=== PATIENT | male | born 1980 | race Asian ===

== ENCOUNTER 2018-01-03 20:19 | Observation (INO) | payer OTHER ==
[~2018-01-03] VITALS: Ht 182.9 cm; Wt 72.9 kg
[2018-01-03] MEDS ORDERED: SODIUM CHLORIDE 0.9% 1000ML 1,000 ML IV STA (21:55)
[2018-01-03 22:30] LABS: BASO % 0.1 %; BASO ABS # 0.01 K/uL (0-0.2); EOS % 0.2 %; EOS ABS # 0.02 K/uL (0-0.5); HEMATOCRIT 44.2 % (42-52); HEMOGLOBIN 15.2 g/dL (14.0-18.0); IG# 0.02 K/uL (0.00-0.02); LYMPH % 18.1 %; LYMPH ABS # 2.19 K/uL (1.2-3.4); MEAN CELL VOLUME 88.8 fL (80-100); MEAN CORPUSCULAR HEMOGLOBIN 30.5 pg (25-34); MEAN CORPUSCULAR HGB CONC 34.4 g/dl (32-36); MEAN PLATELET VOLUME 10.9 fL (7.4-10.4); MONO % 7.5 %; MONO ABS # 0.91 K/uL (0.11-0.59); NEUT % 73.9 %; NEUT ABS # 8.95 K/uL (1.4-6.5); PLATELET COUNT 179 K/uL (130-400); RED CELL DISTRIBUTION WIDTH CV 12.6 % (11.5-14.5); RED CELL DISTRIBUTION WIDTH SD 40.2 fL (36.4-46.3)
[2018-01-03 22:49] LABS: CREATININE 0.99 mg/dl (0.60-1.40); POTASSIUM 3.7 mmol/L (3.5-5.1)
[2018-01-03] MEDS ORDERED: OPTIRAY 320 IV PRN (23:00)
[2018-01-03] MEDS ORDERED: METRONIDAZOLE 500MG / 100ML NSS IV STA (23:29)
[2018-01-03] MEDS ORDERED: CIPROFLOXACIN 400MG / 200ML D5W IV STA (23:29)
[2018-01-04] VITALS (10 sets, daily range): BP systolic 92–132; BP diastolic 58–82; PULSE 69–113; TEMP 36.7–37.8; O2SAT 93–97; Ht 182.9 cm; Wt 72.9 kg
[2018-01-04] MEDS ORDERED: HYDROmorphone INJ 0.5 MG/0.5 ML SYR IV PRN
[2018-01-04] MEDS ORDERED: HYDROmorphone INJ 2 MG/ML SYR/VIAL IV PRN
--- NOTE | 2018-01-04 00:28 | Surgery Consultation ---
Consultation Date of Consultation: Jan 04, 2018. Attending Physician: Reason for Consultation: Acute Appendicitis History of Present Illness Patient is a 37M who presents to the ED this evening due to abdominal pain which started Wednesday. He reports the pain began in his epigastric area and then migrated to his LUQ and eventually localized in his RLQ. Denies fever/ chills/recent illness. Denies nausea/vomiting although he does report a decreased appetite. He has been urinating and moving his bowels without issue. He last ate this morning. Denies FHx of appendicitis. Denies history of previous abdominal surgeries. Denies use of blood thinning or anticoagulant medications. He has never has symptoms like this in the past. WBC 12.10. CT shows findings significant of acute appendicitis. Social History Smoking Status: Never Smoker Allergies Coded Allergies: No Known Allergies (Unverified , 01/03/18) Home Medications No Active Prescriptions or Reported Meds Current Inpatient Medications Current Inpatient Medications Medications (Trade) Dose Ordered Sig/Hay Route Start Time Stop Time Status Last Admin Dose Admin Ioversol (Optiray 320) 100 ml UD PRN IV 01/03/18 23:00 01/07/18 22:59 Ondansetron HCl (Zofran Inj) 4 mg Q6H PRN IV 01/04/18 00:00 02/03/18 00:00 UNV Acetaminophen 1000 mg/Empty Bag 100 ml @ 400 mls/hr Q8H IV 01/04/18 00:00 02/03/18 00:00 UNV Hydromorphone HCl (Dilaudid Inj) 1 mg Q3HWA PRN IV 01/04/18 00:00 01/18/18 00:00 UNV Hydromorphone HCl (Dilaudid Inj) 0.5 mg Q3HWA PRN IV 01/04/18 00:00 01/18/18 00:00 UNV Review of Systems Constitutional: No fever, No chills Respiratory: No shortness of breath Cardiovascular: No chest pain Abdomen: + pain (RLQ), No nausea, No vomiting, No diarrhea, No constipation Genitourinary - Male: No hematuria, No dysuria Physical Exam Date Time Temp Pulse Resp B/P (MAP) Pulse Ox O2 Delivery O2 Flow Rate FiO2 01/03/18 23:56 36.9 97 18 110/73 98 Room Air 01/03/18 22:25 77 20 116/77 98 Room Air 01/03/18 20:28 37.2 98 18 134/86 98 Room Air General Appearance: WD/WN, no apparent distress Head: normocephalic, atraumatic ENT: hearing grossly normal Neck: trachea midline Respiratory/Chest: no respiratory distress, no accessory muscle use Abdomen/GI: soft, no organomegaly, no pulsatile mass, + tenderness (RLQ), + rebound Neurologic/Psych: alert, normal mood/affect, oriented x 3 Skin: normal color, warm/dry Laboratory Results Last 24 Hours Test 01/03/18 22:09 White Blood Count 12.10 K/uL Red Blood Count 4.98 M/uL Hemoglobin 15.2 g/dL Hematocrit 44.2 % Mean Corpuscular Volume 88.8 fL Mean Corpuscular Hemoglobin 30.5 pg Mean Corpuscular Hemoglobin Concent 34.4 g/dl Platelet Count 179 K/uL Mean Platelet Volume 10.9 fL Neutrophils (%) (Auto) 73.9 % Lymphocytes (%) (Auto) 18.1 % Monocytes (%) (Auto) 7.5 % Eosinophils (%) (Auto) 0.2 % Basophils (%) (Auto) 0.1 % Neutrophils # (Auto) 8.95 K/uL Lymphocytes # (Auto) 2.19 K/uL Monocytes # (Auto) 0.91 K/uL Eosinophils # (Auto) 0.02 K/uL Basophils # (Auto) 0.01 K/uL RDW Standard Deviation 40.2 fL RDW Coefficient of Variation 12.6 % Immature Granulocyte % (Auto) 0.2 % Immature Granulocyte # (Auto) 0.02 K/uL Sodium Level 139 mmol/L Potassium Level 3.7 mmol/L Chloride Level 104 mmol/L Carbon Dioxide Level 28 mmol/L Anion Gap 7.0 mmol/L Blood Urea Nitrogen 12 mg/dl Creatinine 0.99 mg/dl Est Creatinine Clear Calc Drug Dose 106.2 ml/min Estimated GFR () 113.1 Estimated GFR (Non- 97.6 BUN/Creatinine Ratio 11.8 Random Glucose 109 mg/dl Calcium Level 9.0 mg/dl Lipase 97 U/L Assessment & Plan Acute appendicitis Dr. Gonzalez in to see and examine patient. Plan for laparoscopic appendectomy, possible open with Dr. Gonzalez this AM. Risks, benefits, alternatives to the procedure were discussed - questions answered. Admit med/surg (obs), NPO, IV fluids, IV mefoxin 2g Q6H starting at 0600, pain medication PRN, zofran PRN, SCDs. OR notified. Please contact with questions or concerns.
--- NOTE | 2018-01-04 00:47 | EMERGENCY ROOM VISIT NOTE ---
History Report prepared by Fabian: Sorin Sommers Under the Supervision of: Dr. Chacorta Jaramillo M.D. First contact with patient: 21:38 Chief Complaint: ABDOMINAL PAIN Stated Complaint: LOWER RIGHT STOMACH SINDY Nursing Triage Summary: Patient c/o RLQ abdominal pain that began 2 days ago. Denies n/v/d. History of Present Illness The patient is a 37 year old male who presents to the Emergency Room with complaints of worsening pain in the abdomen that began on Wednesday, two days ago. The pain is now localized to the right lower quadrant, but he notes that it has been radiating around his stomach since Wednesday. The pain is worsened by laying back quickly. He does "feel warm" but he has not had any recorded temperatures. He has not vomited, there is no melena, and there is no blood in the stool. He also denies any pain in the testicles or hematuria. 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 Source of History: patient Onset: 2 days ago Position: abdomen (RLQ) Timing: worsening Modifying Factors (Worsening): other (Laying back quickly) Associated Symptoms: + fevers (feels warm), No vomiting, No melena Review of Systems See HPI for pertinent positives and negatives. A total of ten systems were reviewed and were otherwise negative. Past Medical & Surgical Medical Problems: (1) Acute appendicitis Hx of HIV-1 exposure Family History None discussed Social History Smoking Status: Never Smoker Marital Status: single Housing Status: lives with roommate Occupation Status: [employer] student Current/Historical Medications No Active Prescriptions or Reported Meds Allergies Coded Allergies: No Known Allergies (Unverified , 01/03/18) Physical Exam Vital Signs Date Time Temp Pulse Resp B/P (MAP) Pulse Ox O2 Delivery O2 Flow Rate FiO2 01/03/18 23:56 36.9 97 18 110/73 98 Room Air 01/03/18 22:25 77 20 116/77 98 Room Air 01/03/18 20:28 37.2 98 18 134/86 98 Room Air Physical Exam Physical Exam GENERAL: He is oriented to person, place, and time. He appears well-developed and well-nourished. He does not appear distressed. ____ HENT: Exam performed. Head: Normocephalic and atraumatic. Right Ear: External ear normal. No mastoid tenderness. Left Ear: External ear normal. No mastoid tenderness. Mouth/Throat: The oropharynx is clear and moist. No trismus in the jaw. No dental abscesses or uvula swelling. No oropharyngeal exudate or tonsillar abscesses. ____ EYES: Conjunctivae and EOM are normal. Pupils are equal, round, and reactive to light. Right eye exhibits no discharge. Left eye exhibits no discharge. No scleral icterus. ____ NECK: Normal range of motion. Neck supple. No JVD present. No spinous process tenderness present. No carotid bruit present. No rigidity. No tracheal deviation and normal range of motion present. No Brudzinski's sign and no Kernig 's sign noted. ____ CV: Normal rate, regular rhythm, normal heart sounds and intact distal pulses. There is no peripheral edema. Palpable radial pulses bue. ____ PULM/CHEST: Effort normal and breath sounds normal. No respiratory distress. No stridor. He has no wheezes. He has no rales. Chest Wall: He exhibits no tenderness. ____ ABD: The abdomen is soft. Bowel sounds are normal. He has no distension. No mass is present. There is pain to McBurney's point in the RLQ, rebound positive. No guarding, no Pérez's sign. Rovsig negative MUSC/SKEL: Normal range of motion. There is no peripheral edema, tenderness or deformity. LYMPH: No cervical adenopathy. ____ NEURO: He is alert and oriented to person, place, and time. He has normal strength. No cranial nerve deficit or sensory deficit. Coordination and gait normal. GCS eye subscore is 4. GCS verbal subscore is 5. GCS motor subscore is 6. Cerebellar tests wnl. ____ SKIN: Skin is warm and dry. He is not diaphoretic. ____ PSYCH: He has a normal mood and affect. His behavior is normal. Judgment and thought content normal. ____ Medical Decision & Procedures ER Provider Diagnostic Interpretation: Radiology results as stated below per my review and radiologist interpretation: CT ABDOMEN & PELVIS With Contrast: Enlarged appendix measuring up to 1.6 cm in diameter with surrounding fat stranding and small amount of free fluid in the pelvis. Findings re compatible with acute appendicitis. No fluid collection or free air. Microperforation no excluded. No bowel obstruction. Mild dependent atelectasis bilaterally. Small right hepatic cyst. Other tiny hypodensity in the liver are too small to definitively characterize. Underdistended gallbladder. Small hypodensity in the left kidney is too small to definitively characterize. No hydronephrosis or stone. Probable bone island in the right femoral head. Radiologist: Terrence Haskins M.D. Laboratory Results 01/03/18 22:09 Red Blood Count 4.98, Mean Corpuscular Volume 88.8, Mean Corpuscular Hemoglobin 30.5, Mean Corpuscular Hemoglobin Concent 34.4, Mean Platelet Volume 10.9, Neutrophils (%) (Auto) 73.9, Lymphocytes (%) (Auto) 18.1, Monocytes (%) (Auto) 7.5, Eosinophils (%) (Auto) 0.2, Basophils (%) (Auto) 0.1, Neutrophils # (Auto) 8.95, Lymphocytes # (Auto) 2.19, Monocytes # (Auto) 0.91, Eosinophils # (Auto) 0.02, Basophils # (Auto) 0.01 01/03/18 22:09 Test 01/03/18 22:09 White Blood Count 12.10 K/uL (4.8-10.8) Red Blood Count 4.98 M/uL (4.7-6.1) Hemoglobin 15.2 g/dL (14.0-18.0) Hematocrit 44.2 % (42-52) Mean Corpuscular Volume 88.8 fL (80-100) Mean Corpuscular Hemoglobin 30.5 pg (25-34) Mean Corpuscular Hemoglobin Concent 34.4 g/dl (32-36) Platelet Count 179 K/uL (130-400) Mean Platelet Volume 10.9 fL (7.4-10.4) Neutrophils (%) (Auto) 73.9 % Lymphocytes (%) (Auto) 18.1 % Monocytes (%) (Auto) 7.5 % Eosinophils (%) (Auto) 0.2 % Basophils (%) (Auto) 0.1 % Neutrophils # (Auto) 8.95 K/uL (1.4-6.5) Lymphocytes # (Auto) 2.19 K/uL (1.2-3.4) Monocytes # (Auto) 0.91 K/uL (0.11-0.59) Eosinophils # (Auto) 0.02 K/uL (0-0.5) Basophils # (Auto) 0.01 K/uL (0-0.2) RDW Standard Deviation 40.2 fL (36.4-46.3) RDW Coefficient of Variation 12.6 % (11.5-14.5) Immature Granulocyte % (Auto) 0.2 % Immature Granulocyte # (Auto) 0.02 K/uL (0.00-0.02) Anion Gap 7.0 mmol/L (3-11) Est Creatinine Clear Calc Drug Dose 106.2 ml/min Estimated GFR () 113.1 Estimated GFR (Non- 97.6 BUN/Creatinine Ratio 11.8 (10-20) Calcium Level 9.0 mg/dl (8.5-10.1) Lipase 97 U/L (73-393) Laboratory results reviewed by me Medications Administered Medications (Trade) Dose Ordered Sig/Hay Route Start Time Stop Time Status Last Admin Dose Admin Sodium Chloride 1,000 ml @ 999 mls/hr Q1H1M STAT IV 01/03/18 21:55 01/03/18 22:55 DC 01/03/18 22:25 999 MLS/HR Ciprofloxacin/ Dextrose (Cipro / D5W) 400 mg NOW STAT IV 01/03/18 23:29 01/03/18 23:31 DC 01/03/18 23:55 400 MG Metronidazole (Flagyl / Nss) 500 mg NOW STAT IV 01/03/18 23:29 01/03/18 23:31 DC 01/03/18 23:41 500 MG ED Course 2153: The patient was evaluated in room C4. A complete history and physical exam was performed. 2155: Ordered Sodium Chloride 1000 mL @ 999 mL/hr IV. 2324: I was paged by Radiology at this time to make me aware of the imaging findings of acute appendicitis. Labs show mild leukocytosis. 2328: I paged for surgery at this time. I will start the patient on Cipro and Flagyl due to a history of penacillin allergies. The family was made aware of the findings to this point. 2329: Ordered Metronidazole 500 mg IV, Ciprofloxacin 400 mg IV. 2331: I discussed the case with Alexis Kaye - Surgery PCP. He will come to the department to evaluate the patient. 2344: I checked on the patient. Dr. Gonzalez - General Surgery. is at bedside at this time. Medical Decision I was paged by Radiology at this time to make me aware of the imaging findings of acute appendicitis. Labs show mild leukocytosis.I paged for surgery at this time. I will start the patient on Cipro and Flagyl due to a history of penacillin allergies. The family was made aware of the findings to this point. Surgeon Dr. Gonzalez states he will admit for surgery Medication Reconcilliation Current Medication List: was personally reviewed by me Blood Pressure Screening Patient's blood pressure: Normal blood pressure Consults Time Called: 232 Consulting Physician: Alexis Kaye - Surgery PCP Returned Call: 2331 I discussed the case with Alexis Kaye - Surgery PCP. He will come to the department to evaluate the patient. Impression Primary Impression: Acute appendicitis Scribe Attestation The scribe's documentation has been prepared under my direction and personally reviewed by me in its entirety. I confirm that the note above accurately reflects all work, treatment, procedures, and medical decision making performed by me. The chart was completed utilizing [employer] Speech voice recognition software. Grammatical errors, random word insertions, pronoun errors, and incomplete sentences are an occasional consequence of this system due to software limitations, ambient noise, and hardware issues. Any formal questions or concerns about the content, text, or information contained within the body of this dictation should be directly addressed to the physician for clarification. Departure Information Dispostion Being Evaluated By Surgeon Prescriptions No Active Prescriptions or Reported Meds Referrals No Doctor, Assigned (PCP) Patient Instructions My [facility] Problem Qualifiers Primary Impression: Acute appendicitis Acute appendicitis type: unspecified acute appendicitis type Qualified Codes : K35.80 - Unspecified acute appendicitis
[2018-01-04] MEDS: ACETAMINOPHEN IV 1,000 MG in EMPTY BAG 0 ML IV SCH ×3 (02:38→18:16)
[2018-01-04] MEDS ORDERED: IV FLUIDS COMPLETED PRN (04:30)
[2018-01-04 05:36] LABS: BASO % 0.1 %; BASO ABS # 0.01 K/uL (0-0.2); EOS % 0.3 %; EOS ABS # 0.03 K/uL (0-0.5); HEMATOCRIT 40.1 % (42-52); HEMOGLOBIN 13.6 g/dL (14.0-18.0); IG# 0.01 K/uL (0.00-0.02); LYMPH % 20.4 %; LYMPH ABS # 2.35 K/uL (1.2-3.4); MEAN CELL VOLUME 89.1 fL (80-100); MEAN CORPUSCULAR HEMOGLOBIN 30.2 pg (25-34); MEAN CORPUSCULAR HGB CONC 33.9 g/dl (32-36); MEAN PLATELET VOLUME 11.2 fL (7.4-10.4); MONO ABS # 1.39 K/uL (0.11-0.59); NEUT % 67.1 %; NEUT ABS # 7.75 K/uL (1.4-6.5); PLATELET COUNT 175 K/uL (130-400); RED CELL DISTRIBUTION WIDTH CV 12.6 % (11.5-14.5); RED CELL DISTRIBUTION WIDTH SD 40.2 fL (36.4-46.3); WHITE BLOOD COUNT 11.54 K/uL (4.8-10.8)
[2018-01-04] MEDS ORDERED: LIDOCAINE/EPINEPHRINE 1% 20 ML VIAL ONE (05:57)
[2018-01-04] MEDS ORDERED: CEFOXITIN IV 2,000 MG in DEXTROSE 5% 50ML 50 ML IV SCH (06:00)
[2018-01-04] MEDS ORDERED: LIDOCAINE HCL 2% 2 ML VIAL (20MG/ML) ONE (06:07)
[2018-01-04] MEDS ORDERED: FENTANYL CITRATE INJ 50 MCG/1 ML 2 ML VIAL ONE (06:07)
[2018-01-04] MEDS ORDERED: ONDANSETRON INJ 2 MG/ML 2 ML VIAL ONE (06:07)
[2018-01-04] MEDS ORDERED: PROPOFOL IV EMULSION 10 MG/ML 20 ML VIAL IV ONE (06:07)
[2018-01-04] MEDS ORDERED: ATROPINE SULFATE 0.1 MG/ML 5ML SYR IV PRN (06:15)
[2018-01-04] MEDS ORDERED: FENTANYL CITRATE INJ 50 MCG/1 ML 2 ML VIAL IV PRN (06:15)
[2018-01-04] MEDS ORDERED: ONDANSETRON INJ 2 MG/ML 2 ML VIAL IV PRN ×2 (06:15)
[2018-01-04] MEDS ORDERED: EpHEDrine SULFATE INJ 50 MG/ML AMP IV PRN (06:15)
[2018-01-04] MEDS ORDERED: ROCURONIUM BROMIDE 10 MG/ML 5 ML VIAL IV ONE (06:46)
--- NOTE | 2018-01-04 06:53 | DIAGNOSTIC IMAGING REPORT ---
CT ABD/PELVIS IV CONTRAST ONLY CLINICAL HISTORY: Right lower quadrant abdominal pain. COMPARISON STUDY: None. TECHNIQUE: Following the IV administration of 116 mL of Optiray-320, CT scan of the abdomen and pelvis was performed from the lung bases to the proximal femurs. Images are reviewed in the axial, sagittal, and coronal planes. IV contrast was administered without complication. A dose lowering technique was utilized adhering to the principles of ALARA. CT DOSE: 464.66 mGycm FINDINGS: Lower chest: There are minor basilar atelectatic changes. Liver: There are several hypodensities, the largest of which is located within the right lobe measuring 11 mm. These approach water attenuation likely represent cysts. Gallbladder: Unremarkable. Spleen: Normal in size and attenuation. Pancreas: Unremarkable. Adrenal glands: Unremarkable. Kidneys: There is an 8 mm right renal cyst. Bowel: There are no transition zones indicate bowel obstruction. There is a dilated gas and fluid-filled appendix with associated cecal edema, and periappendiceal inflammatory change. There is associated free fluid within the pelvis. The findings are consistent with acute appendicitis. A gangrenous appendix cannot be excluded. Peritoneum: There is free fluid in the pelvis. No free intraperitoneal air is visualized. Vasculature: The abdominal aorta is normal in course and caliber. Adenopathy: None. Pelvic viscera: The bladder, and pelvic viscera are unremarkable. Skeletal structures: No destructive osseous lesions are seen. IMPRESSION: Acute appendicitis with significant periappendiceal inflammatory change and a small amount of associated free fluid within the pelvis. Given the degree of inflammation, appendiceal gangrene cannot be excluded. Electronically signed by: Rigoberto Rodriguez M.D. 01/04/2018 6:52 AM Dictated Date/Time: 01/04/2018 6:48 AM
[2018-01-04] MEDS ORDERED: GLYCOPYRROLATE INJ 0.2 MG/ML VIAL ONE (07:14)
[2018-01-04] MEDS ORDERED: NEOSTIGMINE METHYLSULFATE 5 MG/5 ML SYR ONE (07:14)
[2018-01-04] MEDS ORDERED: KETOROLAC TROMETHAMINE 30 MG/ML VIAL ONE (07:23)
--- NOTE | 2018-01-04 07:23 | [facility] Post Operative Brief Note ---
Immediate Operative Summary Operative Date Jan 04, 2018. Pre-Operative Diagnosis Appendicitis Post-Operative Diagnosis Same Procedure(s) Performed Laparoscopic Appendectomy Surgeon Dr Gonzalez Drum Worker Surgeon(s) Alexis Yin PA-C Estimated Blood Loss 5ml Findings See Below ACUTE NONRUPTURED APPENDICITIS Specimens A appendix Anesthesia Type General
[2018-01-04] MEDS ORDERED: OXYCODONE/ACETAMINOPHEN 5-325 TAB PO PRN ×2 (07:45)
[2018-01-04] MEDS ORDERED: MoRPHine SULFATE 2 MG/ML CARP IV PRN (07:45)
[2018-01-04] MEDS ORDERED: MoRPHine SULFATE 4 MG/ML 1 ML CARP\\VIAL IV PRN (07:45)
[2018-01-04] MEDS ORDERED: OXYC-57 PO (07:54)
--- NOTE | 2018-01-04 07:57 | Discharge Instructions ---
Discharge Instructions Date of Service Jan 04, 2018. Admission Reason for Admission: Acute Appendicitis Discharge Discharge Diagnosis / Problem: Acute Appendicitis Discharge Goals Goal(s): Decrease discomfort, Improve function Activity Recommendations Activity Limitations: as noted below Lifting Limitations: no more than 10 pounds, until after follow-up appointment Exercise/Sports Limitations: until after follow-up appointment May Resume Sexual Activity: after follow-up appointment Shower/Bathe: tomorrow Driving or Machine Use: resume 3 days after discharge (Please do not drive while using narcotic pain medication) . Instructions / Follow-Up Instructions / Follow-Up You have been prescribed percocet to take as needed for pain relief. Please use as directed. Follow-up with Dr. Gonzalez in 1-2 weeks. Please contact our office at to schedule an appointment if you have not done so already. Please contact our office with any further questions or concerns. [employer] [address] [place] [address]. Current Hospital Diet Patient's current hospital diet: Clear Liquid Diet Discharge Diet Recommended Diet: Regular Diet Procedures Procedures Performed: Laparoscopic Appendectomy Pending Studies Studies pending at discharge: yes List of pending studies: pathology Medical Emergencies . Who to Call and When: Medical Emergencies: If at any time you feel your situation is an emergency, please call 911 immediately. . Non-Emergent Contact Non-Emergency issues call your: Primary Care Provider, Surgeon Call Non-Emergent contact if: you have a fever, temperature is above 101.5, your pain is not controlled, your pain is worsening, wound has increased drainage, wound has increased redness . "Provider Documentation" section prepared by Alexis Pulliam. . [place] Drug Monitoring Program Search Results: patient reviewed within database, no issues identified
--- NOTE | 2018-01-04 08:22 | Anesthesiology Progress Note ---
Anesthesia Post Op Note Date & Time Jan 04, 2018 at 08:22 Vital Signs Pain Intensity: 2 Vital Signs Past 12 Hours Date Time Temp Pulse Resp B/P (MAP) Pulse Ox O2 Delivery O2 Flow Rate FiO2 01/04/18 08:05 75 14 92/59 (65) 96 Room Air 01/04/18 07:55 62 12 111/72 100 Oxymask 10 01/04/18 07:45 62 12 110/80 100 Oxymask 10 01/04/18 07:36 37 68 12 120/73 97 Oxymask 01/04/18 05:50 36.7 80 14 124/81 (95) 96 Room Air 01/04/18 02:02 36.8 89 16 132/82 97 Room Air 01/04/18 01:30 Room Air 01/04/18 01:10 96 20 104/64 95 Room Air 01/03/18 23:56 36.9 97 18 110/73 98 Room Air 01/03/18 22:25 77 20 116/77 98 Room Air 01/03/18 20:28 37.2 98 18 134/86 98 Room Air Notes Mental Status: alert / awake / arousable, participated in evaluation Pt Amnestic to Procedure: Yes Nausea / Vomiting: adequately controlled Pain: adequately controlled Airway Patency, RR, SpO2: stable & adequate BP & HR: stable & adequate Hydration State: stable & adequate Anesthetic Complications: no major complications apparent
--- NOTE | 2018-01-04 08:45 | OPERATIVE REPORT ---
DATE OF OPERATION: 01/04/2018 SURGEON: Delmer Gonzalez MD. [employer]: Alexis Slade PA-C. PREOPERATIVE DIAGNOSIS: Acute appendicitis. POSTOPERATIVE DIAGNOSIS: Acute nonruptured appendicitis. PROCEDURE: Laparoscopic appendectomy. SUMMARY: The patient was brought into the operating room theater. Under general anesthesia, the abdomen was shaved and prepped and properly draped after Betadine solution was applied to the skin. At this point, we made a small incision supraumbilically sufficient enough to place a Veress needle followed by CO2 followed by 5 mm trocar. Point of entry inspected and no injury identified. We then turned to the right lower quadrant where we could see the omentum drape towards the right lower quadrant area. At this point, under direct visualization, I placed a 5 mm right upper quadrant port with preemptive local analgesia. Using a grasper, we were able to mobilize the omentum which was strictly adhering to what appeared to be an acutely dilated and inflamed appendix. At this point, I converted the umbilical area to 11 mm under direct visualization and used a 5 mm placed in left lower quadrant under direct visualization with preemptive local analgesia. Using the 2 graspers, we placed the camera in the left lower quadrant. We were able to elevate the appendix up, we freed the omentum which was acutely inflamed. The appendix was thick walled almost to the base of the cecum, it appeared to be inflamed. The mesentery was quite thick and also the mesoappendix was quite thick and also the terminal ileum was adjacent to the area. We first created a window between the mesoappendix and the base of the cecum sufficient enough to then place a purple load stapler actually taken part of the cecum to make sure that we had good viable tissue, noninflamed tissue. We used 2 loads in that area and the area appeared satisfactory. We then worked on the mesoappendix, was acutely inflamed. We used 10 mm clips to control the density of this. We were able to elevated this sufficiently up that we used another application of the purple stapler. We made sure that the terminal ileum which was close to the area was violated. Once we fired the other stapler, we then placed the appendix in an Endopouch and took it out intact. Actually, the appendix was quite dilated that we needed to put a Kell clamp into the 11 mm trocar site to adjust it large and sufficient enough that we could remove the appendix without much difficulty. At this point, we then reapplied the 11 mm trocar, suctioned out the area, right lower quadrant, placed the patient in reverse Trendelenburg position where hemostasis was satisfactory and there was no evidence of any bleed. Under direct visualization, we removed the individual trocars. Last we removed the left lower quadrant trocar. 0 Vicryl suture was used for x2 [id number] for the umbilical area, the other ones were Monocryl. Steri-Strips applied. The procedure was tolerated well by the patient. Estimated blood loss approximately 5 mL. The patient was taken to recovery room in good condition. I attest to the content of the Intraoperative Record and any orders documented therein. Any exception s are noted below.
--- NOTE | 2018-01-04 15:18 | Surgery Progress Note ---
Surgery Progress Note Date of Service Jan 04, 2018. Subjective c/o gas pains, only had water for lunch Objective Vital Signs: Date Time Temp Pulse Resp B/P (MAP) Pulse Ox O2 Delivery O2 Flow Rate FiO2 01/04/18 12:30 90 12 100/67 (78) 96 Room Air 01/04/18 10:36 37.1 77 12 106/62 (77) 95 Room Air 01/04/18 09:52 37.2 86 16 92/58 (69) 94 Room Air 01/04/18 09:13 73 14 95/60 (72) 93 Room Air 01/04/18 08:50 Room Air 01/04/18 08:50 37.0 69 18 100/65 (77) 93 Room Air 01/04/18 08:50 Nasal Cannula 01/04/18 08:30 67 15 102/61 96 Room Air 01/04/18 08:15 36.9 66 16 105/64 96 Room Air 01/04/18 08:05 75 14 92/59 (65) 96 Room Air 01/04/18 07:55 62 12 111/72 100 Oxymask 10 01/04/18 07:45 62 12 110/80 100 Oxymask 10 01/04/18 07:36 37 68 12 120/73 97 Oxymask 01/04/18 05:50 36.7 80 14 124/81 (95) 96 Room Air 01/04/18 02:02 36.8 89 16 132/82 97 Room Air 01/04/18 01:30 Room Air 01/04/18 01:10 96 20 104/64 95 Room Air 01/03/18 23:56 36.9 97 18 110/73 98 Room Air 01/03/18 22:25 77 20 116/77 98 Room Air 01/03/18 20:28 37.2 98 18 134/86 98 Room Air Abdomen: soft Laboratory Results: Results Past 24 Hours Test 01/03/18 22:09 01/04/18 02:50 01/04/18 05:11 Range/Units White Blood Count 12.10 11.54 4.8-10.8 K/uL Red Blood Count 4.98 4.50 4.7-6.1 M/uL Hemoglobin 15.2 13.6 14.0-18.0 g/dL Hematocrit 44.2 40.1 42-52 % Mean Corpuscular Volume 88.8 89.1 80-100 fL Mean Corpuscular Hemoglobin 30.5 30.2 25-34 pg Mean Corpuscular Hemoglobin Concent 34.4 33.9 32-36 g/dl Platelet Count 179 175 130-400 K/uL Mean Platelet Volume 10.9 11.2 7.4-10.4 fL Neutrophils (%) (Auto) 73.9 67.1 % Lymphocytes (%) (Auto) 18.1 20.4 % Monocytes (%) (Auto) 7.5 12.0 % Eosinophils (%) (Auto) 0.2 0.3 % Basophils (%) (Auto) 0.1 0.1 % Neutrophils # (Auto) 8.95 7.75 1.4-6.5 K/uL Lymphocytes # (Auto) 2.19 2.35 1.2-3.4 K/uL Monocytes # (Auto) 0.91 1.39 0.11-0.59 K/uL Eosinophils # (Auto) 0.02 0.03 0-0.5 K/uL Basophils # (Auto) 0.01 0.01 0-0.2 K/uL RDW Standard Deviation 40.2 40.2 36.4-46.3 fL RDW Coefficient of Variation 12.6 12.6 11.5-14.5 % Immature Granulocyte % (Auto) 0.2 0.1 % Immature Granulocyte # (Auto) 0.02 0.01 0.00-0.02 K/uL Sodium Level 139 136-145 mmol/L Potassium Level 3.7 3.5-5.1 mmol/L Chloride Level 104 98-107 mmol/L Carbon Dioxide Level 28 21-32 mmol/L Anion Gap 7.0 3-11 mmol/L Blood Urea Nitrogen 12 7-18 mg/dl Creatinine 0.99 0.60-1.40 mg/dl Est Creatinine Clear Calc Drug Dose 106.2 ml/min Estimated GFR () 113.1 Estimated GFR (Non- 97.6 BUN/Creatinine Ratio 11.8 10-20 Random Glucose 109 70-99 mg/dl Calcium Level 9.0 8.5-10.1 mg/dl Lipase 97 73-393 U/L Urine Color YELLOW Urine Appearance CLEAR CLEAR Urine pH 5.0 4.5-7.5 Urine Specific [place] > 1.045 1.000-1.030 Urine Protein NEG NEG Urine Glucose (UA) NEG NEG Urine Ketones TRACE NEG Urine Occult Blood NEG NEG Urine Nitrite NEG NEG Urine Bilirubin NEG NEG Urine Urobilinogen NEG NEG Urine Leukocyte Esterase NEG NEG Assessment & Plan s/p lap appy will keep here today, not tolerating po
--- NOTE | 2018-01-04 20:25 | Surgery Progress Note ---
Surgery Progress Note Date of Service Jan 04, 2018. Subjective + feeling well, + ambulating, + flatus, + pain controlled, + diet (Tolerating regular diet), No complaints, No bowel movement, No nausea, No vomiting Urinating without issue, pain controlled. Patient expressed his interest in being discharged tonight. Objective Vital Signs: Date Time Temp Pulse Resp B/P (MAP) Pulse Ox O2 Delivery O2 Flow Rate FiO2 01/04/18 17:09 37.0 100 01/04/18 15:22 37.8 113 17 104/69 (81) 95 Room Air 01/04/18 12:30 90 12 100/67 (78) 96 Room Air 01/04/18 10:36 37.1 77 12 106/62 (77) 95 Room Air 01/04/18 09:52 37.2 86 16 92/58 (69) 94 Room Air 01/04/18 09:13 73 14 95/60 (72) 93 Room Air 01/04/18 08:50 Room Air 01/04/18 08:50 37.0 69 18 100/65 (77) 93 Room Air 01/04/18 08:50 Nasal Cannula 01/04/18 08:30 67 15 102/61 96 Room Air 01/04/18 08:15 36.9 66 16 105/64 96 Room Air 01/04/18 08:05 75 14 92/59 (65) 96 Room Air 01/04/18 07:55 62 12 111/72 100 Oxymask 10 01/04/18 07:45 62 12 110/80 100 Oxymask 10 01/04/18 07:36 37 68 12 120/73 97 Oxymask 01/04/18 05:50 36.7 80 14 124/81 (95) 96 Room Air 01/04/18 02:02 36.8 89 16 132/82 97 Room Air 01/04/18 01:30 Room Air 01/04/18 01:10 96 20 104/64 95 Room Air 01/03/18 23:56 36.9 97 18 110/73 98 Room Air 01/03/18 22:25 77 20 116/77 98 Room Air 01/03/18 20:28 37.2 98 18 134/86 98 Room Air General Appearance: WD/WN, no apparent distress Head: normocephalic, atraumatic Respiratory/Chest: no respiratory distress, no accessory muscle use Abdomen: non distended, soft, no organomegaly, no pulsatile mass, + tenderness (Incisional, mild) Incision(s): clean, dry, intact, no erythema, no drainage Laboratory Results: Results Past 24 Hours Test 01/03/18 22:09 01/04/18 02:50 01/04/18 05:11 Range/Units White Blood Count 12.10 11.54 4.8-10.8 K/uL Red Blood Count 4.98 4.50 4.7-6.1 M/uL Hemoglobin 15.2 13.6 14.0-18.0 g/dL Hematocrit 44.2 40.1 42-52 % Mean Corpuscular Volume 88.8 89.1 80-100 fL Mean Corpuscular Hemoglobin 30.5 30.2 25-34 pg Mean Corpuscular Hemoglobin Concent 34.4 33.9 32-36 g/dl Platelet Count 179 175 130-400 K/uL Mean Platelet Volume 10.9 11.2 7.4-10.4 fL Neutrophils (%) (Auto) 73.9 67.1 % Lymphocytes (%) (Auto) 18.1 20.4 % Monocytes (%) (Auto) 7.5 12.0 % Eosinophils (%) (Auto) 0.2 0.3 % Basophils (%) (Auto) 0.1 0.1 % Neutrophils # (Auto) 8.95 7.75 1.4-6.5 K/uL Lymphocytes # (Auto) 2.19 2.35 1.2-3.4 K/uL Monocytes # (Auto) 0.91 1.39 0.11-0.59 K/uL Eosinophils # (Auto) 0.02 0.03 0-0.5 K/uL Basophils # (Auto) 0.01 0.01 0-0.2 K/uL RDW Standard Deviation 40.2 40.2 36.4-46.3 fL RDW Coefficient of Variation 12.6 12.6 11.5-14.5 % Immature Granulocyte % (Auto) 0.2 0.1 % Immature Granulocyte # (Auto) 0.02 0.01 0.00-0.02 K/uL Sodium Level 139 136-145 mmol/L Potassium Level 3.7 3.5-5.1 mmol/L Chloride Level 104 98-107 mmol/L Carbon Dioxide Level 28 21-32 mmol/L Anion Gap 7.0 3-11 mmol/L Blood Urea Nitrogen 12 7-18 mg/dl Creatinine 0.99 0.60-1.40 mg/dl Est Creatinine Clear Calc Drug Dose 106.2 ml/min Estimated GFR () 113.1 Estimated GFR (Non- 97.6 BUN/Creatinine Ratio 11.8 10-20 Random Glucose 109 70-99 mg/dl Calcium Level 9.0 8.5-10.1 mg/dl Lipase 97 73-393 U/L Urine Color YELLOW Urine Appearance CLEAR CLEAR Urine pH 5.0 4.5-7.5 Urine Specific [place] > 1.045 1.000-1.030 Urine Protein NEG NEG Urine Glucose (UA) NEG NEG Urine Ketones TRACE NEG Urine Occult Blood NEG NEG Urine Nitrite NEG NEG Urine Bilirubin NEG NEG Urine Urobilinogen NEG NEG Urine Leukocyte Esterase NEG NEG Assessment & Plan s/p lap appy Pain controlled, tolerating regular diet, urinating and ambulating without issue. Patient expressed his interest in going home tonight. D/C tonight. discharge/follow-up instructions and medications in chart. Please contact with questions or concerns.
--- NOTE | 2018-01-06 00:14 | Discharge Summary ---
Discharge Summary Date of Service Jan 06, 2018. Admission Date/Reason Jan 04, 2018 at 00:04 Acute Appendicitis. Discharge Date/Disposition Jan 04, 2018 Home Diagnosis Principal Diagnosis: Acute appendicitis Procedure(s) Performed laparoscopic appendectomy Medication Reconciliation Percocet 5mg/325mg 1-2 Tablets PO Q4H PRN for pain x 3 days. Disp: 15 Tablets Admission Physical Exam As per Admitting History & Physical. Hospital Course 01/04/18: Patient presented to the ED early this morning due to epigastric abdominal pain eventually localizing to his RLQ. WBC 12.10. CT findings significant for acute appendicitis. At this time the patient was admitted to med/surg and given antibiotics. Plan for laparoscopic appendectomy with Dr. Gonzalez later this AM. The patient was brought down to the OR later this morning and Laparoscopic appendectomy was performed successfully without complications. The patient was then sent to the PACU for recovery and then transferred back to med/surg for post-op care. Later this afternoon patient had mild incisional tenderness, urinating without issue. At this time he had a decreased appetite and he was having some trouble with drinking water PO intake. It was decided to keep him 1 more night. Later this evening around 1999 I received a call that the patient would like to go home. I went to evaluate the patient and he was tolerating foods much better at this time, incisional pain still minimal. Patient was discharged at this time with instructions to follow-up with Dr. Gonzalez in the general surgery clinic. Patient was sent home with a prescription for Percocet to take as needed for pain relief and instructions on limitations and wound care. Discharge Instructions Please refer to the electronic Patient Visit Report (Discharge Instructions) for additional information.
== END 2018-01-04 20:51 | disposition home or self-care (01) ==
LOC: C.EDB 20:20 → C.MSW 01-04 00:04 → ENRESERV 01-04 00:44
PROVIDERS: ADMIT Surgery; ATTEND Surgery
DX: K35.80 Unspecified acute appendicitis (principal); Z88.0 Allergy status to penicillin